=== PATIENT | male | born 1995 | race Caucasian/White ===

== ENCOUNTER 2019-11-13 10:34 | Emergency (ER) | payer BC ==
[~2019-11-13] VITALS: Ht 177.8 cm; Wt 79.4 kg
== END 2019-11-13 12:09 | disposition home or self-care (01) ==
LOC: ER 10:34
DX: R07.89 Other chest pain (principal); F17.290 Nicotine dependence, other tobacco product, uncomplicated
CPT/HCPCS: 71046; 93005; 93010; 99283-25

== ENCOUNTER 2020-11-05 02:25 | Emergency (ER) | payer BC ==
[~2020-11-05] VITALS: Ht 177.8 cm; Wt 79.4 kg
[2020-11-05] MEDS ORDERED: Silvadene20 GM TOP (02:59)
== END 2020-11-05 04:05 | disposition home or self-care (01) ==
LOC: ER 02:25
DX: T23.301A Burn of third degree of right hand, unspecified site, initial encounter (principal); X08.8XXA Exposure to other specified smoke, fire and flames, initial encounter; W07.XXXA Fall from chair, initial encounter
CPT/HCPCS: 16020; 73130; 99283-25